=== PATIENT | male | born 1960 | race Caucasian/White ===

== ENCOUNTER 2025-03-13 13:25 | Outpatient (CLI) | payer MEDICARE, OTHER ==
[2025-03-13 14:17] LABS: Estimated GFR - POC 67.0
== END 2025-03-13 13:26 | disposition home or self-care (01) ==
LOC: SCSMRI 13:25
PROVIDERS: ATTEND Urology
DX: C61 Malignant neoplasm of prostate (principal)
CPT/HCPCS: 36415; 72197; 82565